=== PATIENT | female | born 1965 | race Caucasian/White ===

== ENCOUNTER 2018-07-13 06:44 | Day surgery (SDC) | payer OTHER, MEDICARE ==
[~2018-07-13] VITALS: Ht 152.4 cm; Wt 75.0 kg
[~2018-07-13 06:44] MED LIST: CLON.5 PO; ESCI20TA PO; ESTR-95 PO; MULT-199 PO; PROV2.5 PO; QUET200T PO; RINGERS SOLUTION,LACTATED 1,000 ML IV ONE
[2018-07-13] MEDS ORDERED: SUCCINYLCHOLINE CHLORIDE 20 MG/ML 10 ML VIAL IVP ONE (06:45)
[2018-07-13] MEDS ORDERED: AMPICILLIN SODIUM 1 GM/VIAL ONE (06:45)
[2018-07-13] MEDS ORDERED: ONDANSETRON HCL 4 MG/2 ML VIAL IVP ONE (06:45)
[2018-07-13] MEDS ORDERED: LIDOCAINE/PF 2% 5 ML VIAL IM ONE (06:45)
[2018-07-13] MEDS ORDERED: DEXAMETHASONE SOD PHOS 4 MG/ML VIAL IVP ONE (06:45)
[2018-07-13] MEDS ORDERED: FentaNYL CITRATE-PF 100 MCG/2 ML VIAL IVP ONE (06:45)
[2018-07-13] MEDS ORDERED: PROPOFOL 1% 20 ML VIAL IVP ONE (06:45)
[2018-07-13] MEDS ORDERED: MEPERIDINE-PF 25 MG/ML VIAL IVP PRN (10:15)
[2018-07-13] MEDS ORDERED: HYDROmorphone 2 MG/ML SYRINGE IVP PRN (10:15)
[2018-07-13] MEDS ORDERED: FentaNYL CITRATE-PF 100 MCG/2 ML VIAL IVP PRN (10:15)
[2018-07-13] MEDS ORDERED: BUPIVACAINE/EPI/PF 0.5% 30 ML VIAL ONE (10:19)
[2018-07-13] MEDS ORDERED: MEPERIDINE-PF 25 MG/ML VIAL ONE (10:39)
[2018-07-13] MEDS ORDERED: OXYGEN THERAPY IH SCH (20:00)
== END 2018-07-13 11:40 | disposition home or self-care (01) ==
LOC: SURGERY 06:44
PROVIDERS: ATTEND Dentist General Practice
DX: K05.30 Chronic periodontitis, unspecified (principal); K04.7 Periapical abscess without sinus; E11.9 Type 2 diabetes mellitus without complications; E78.5 Hyperlipidemia, unspecified; K21.9 Gastro-esophageal reflux disease without esophagitis; E55.9 Vitamin D deficiency, unspecified; F41.8 Other specified anxiety disorders; F71 Moderate intellectual disabilities; F32.9 Major depressive disorder, single episode, unspecified; Z86.69 Personal history of other diseases of the nervous system and sense organs; Z88.1 Allergy status to other antibiotic agents; Z88.2 Allergy status to sulfonamides; Z90.49 Acquired absence of other specified parts of digestive tract; Z79.84 Long term (current) use of oral hypoglycemic drugs; Z79.2 Long term (current) use of antibiotics; Z88.8 Allergy status to other drugs, medicaments and biological substances; Z79.899 Other long term (current) drug therapy; Z98.890 Other specified postprocedural states
CPT/HCPCS: 41899; J0290; J0330; J1100; J2175; J2405; J2704; J3010; J3490 ×2; J7120

== ENCOUNTER 2020-11-22 06:31 | Day surgery (SDC) | payer OTHER, MEDICARE, MEDICAID ==
[~2020-11-22] VITALS: Ht 147.3 cm; Wt 70.5 kg
[~2020-11-22 06:31] MED LIST changes: +CLON-592 PO; -CLON.5 PO; -ESCI20TA PO; +ESCI20TA87 PO
[2020-11-22] MEDS ORDERED: SODIUM CHLORIDE 0.9% 0 ML ONE (07:15)
[2020-11-22 07:31] LABS: BASOPHILS % (AUTO) 0.5 % (0.0-2.0); EOSINOPHILS % (AUTO) 4.1 % (1.0-6.0); HEMATOCRIT 41.9 % (36-46); HEMOGLOBIN 13.9 g/dL (12.0-16.0); LYMPHOCYTES # (AUTO) 1.9 K/uL (1.0-4.8); LYMPHOCYTES % (AUTO) 26.3 % (22.0-44.0); MEAN CORPUSCULAR HEMOGLOBIN 29.9 pg (26.0-34.0); MEAN CORPUSCULAR HGB CONC 33.2 G/dL (31.0-37.0); MEAN CORPUSCULAR VOLUME 90 fL (80-100); MONOCYTES # (AUTO) 0.4 K/uL (0.1-1.0); MONOCYTES % (AUTO) 5.4 % (2.0-9.0); NEUTROPHILS # (AUTO) 4.6 K/uL (1.8-7.7); NEUTROPHILS % (AUTO) 63.7 % (40.0-70.0); PLATELET COUNT (AUTO) 233 K/uL (150-450); RED BLOOD CELL COUNT(AUTO) 4.66 MIL/uL (4.00-5.20); RED CELL DISTRIBUTION WIDTH 13.9 % (11.5-14.5)
[2020-11-22] MEDS ORDERED: AMPICILLIN SODIUM 1 GM/VIAL ONE (07:38)
[2020-11-22 07:40] LABS: ANION GAP 9 mmol/L (8-16); CALCIUM, TOTAL 9.3 mg/dL (8.8-10.5); CARBON DIOXIDE 27 mmol/L (22-29); CHLORIDE 105 mmol/L (98-107); CREATININE 0.84 mg/dL (0.60-1.30); GLOMERULAR FILTR. RATE CALC > 60 mL/min (>60); GLUCOSE,RANDOM 94 mg/dL (70-110); POTASSIUM 4.3 mmol/L (3.5-5.1); SODIUM SERUM 141 mmol/L (136-145); UREA NITROGEN, BLOOD 19 mg/dL (7-18)
[2020-11-22 07:44] LABS: COVID AG,FIA SOURCE NASOPHARYNGEAL
[2020-11-22 07:45] LABS: PROTHROMBIN TIME 10.6 SEC (9.4-11.6)
[2020-11-22 07:48] LABS: ALANINE AMINOTRANSFERASE 25 U/L (12-78); ALBUMIN 3.8 g/dL (3.4-5.0); ALKALINE PHOSPHATASE 85 U/L (46-116); ASPARTATE AMINOTRANSFERASE 20 U/L (15-37); BILIRUBIN,TOTAL 0.5 mg/dL (0.1-1.0); TOTAL PROTEIN, SERUM 7.5 g/dL (6.4-8.2)
[2020-11-22] MEDS ORDERED: RINGERS SOLUTION,LACTATED 1,000 ML IV ONE (08:00)
[2020-11-22] MEDS ORDERED: HYDR50CA9 PO (08:53)
[2020-11-22] MEDS ORDERED: DEXAMETHASONE 4 MG TABLET ONE (09:54)
[2020-11-22] MEDS ORDERED: ONDANSETRON HCL 4 MG/2 ML VIAL ONE (09:54)
[2020-11-22] MEDS ORDERED: PROPOFOL 1% 20 ML VIAL IVP ONE (09:54)
[2020-11-22] MEDS ORDERED: SUCCINYLCHOLINE CHLORIDE 20 MG/ML 10 ML VIAL ONE (09:54)
[2020-11-22] MEDS ORDERED: LIDOCAINE 2% 5 ML JELLY ONE (09:54)
[2020-11-22] MEDS ORDERED: BUPIVACAINE 0.25%/EPI 1:200,000/PF 10 ML VIAL ONE (14:03)
== END 2020-11-22 15:10 | disposition home or self-care (01) ==
LOC: SURGERY 06:31
PROVIDERS: ATTEND Dentist General Practice
DX: K02.9 Dental caries, unspecified (principal); K05.30 Chronic periodontitis, unspecified; K03.6 Deposits [accretions] on teeth; G40.909 Epilepsy, unspecified, not intractable, without status epilepticus; K21.9 Gastro-esophageal reflux disease without esophagitis; F32.9 Major depressive disorder, single episode, unspecified; B06.9 Rubella without complication; Z88.1 Allergy status to other antibiotic agents; Z88.2 Allergy status to sulfonamides; Z88.8 Allergy status to other drugs, medicaments and biological substances; F63.81 Intermittent explosive disorder; Z79.899 Other long term (current) drug therapy; Z98.890 Other specified postprocedural states
CPT/HCPCS: 36415; 41899; 71045; 80053; 85025; 85610; 85730; 87426; 93005; C9803; J0290; J3490; J7120; J0330; J2405; J2704; J7050; J8540

== ENCOUNTER 2022-07-24 06:12 | Day surgery (SDC) | payer OTHER, MEDICARE, MEDICAID ==
[~2022-07-24] VITALS: Ht 150.5 cm; Wt 80.3 kg
[~2022-07-24 06:12] MED LIST changes: +HYDR50CA7 PO; -RINGERS SOLUTION,LACTATED 1,000 ML IV ONE
[2022-07-24] MEDS ORDERED: RINGERS SOLUTION,LACTATED 1,000 ML IV ONE ×2 (06:30→07:00)
[2022-07-24 06:45] LABS: COVID AG,FIA SOURCE NASAL SWAB
[2022-07-24 07:02] LABS: BASOPHILS % (AUTO) 0.2 % (0.0-2.0); EOSINOPHILS % (AUTO) 1.3 % (1.0-6.0); HEMATOCRIT 42.5 % (36-46); HEMOGLOBIN 14.1 g/dL (12.0-16.0); LYMPHOCYTES # (AUTO) 1.5 K/uL (1.0-4.8); LYMPHOCYTES % (AUTO) 21.1 % (22.0-44.0); MEAN CORPUSCULAR HEMOGLOBIN 29.8 pg (26.0-34.0); MEAN CORPUSCULAR HGB CONC 33.2 G/dL (31.0-37.0); MEAN CORPUSCULAR VOLUME 90 fL (80-100); MONOCYTES # (AUTO) 0.4 K/uL (0.1-1.0); MONOCYTES % (AUTO) 5.9 % (2.0-9.0); NEUTROPHILS % (AUTO) 71.5 % (40.0-70.0); PLATELET COUNT (AUTO) 241 K/uL (150-450); RED BLOOD CELL COUNT(AUTO) 4.73 MIL/uL (4.00-5.20); RED CELL DISTRIBUTION WIDTH 13.3 % (11.5-14.5)
[2022-07-24 07:14] LABS: PROTHROMBIN TIME 10.6 SEC (9.4-11.6)
[2022-07-24 07:16] LABS: ANION GAP 6 mmol/L (8-16); CALCIUM, TOTAL 9.5 mg/dL (8.8-10.5); CARBON DIOXIDE 28 mmol/L (22-29); CHLORIDE 104 mmol/L (98-107); CREATININE 0.78 mg/dL (0.60-1.30); GLUCOSE,RANDOM 100 mg/dL (70-110); POTASSIUM 4.2 mmol/L (3.5-5.1); SODIUM SERUM 138 mmol/L (136-145); UREA NITROGEN, BLOOD 21 mg/dL (7-18)
[2022-07-24 07:18] LABS: GLOMERULAR FILTR. RATE CALC > 60 mL/min (>60)
[2022-07-24 07:24] LABS: ALANINE AMINOTRANSFERASE 25 U/L (12-78); ALBUMIN 3.7 g/dL (3.4-5.0); ALKALINE PHOSPHATASE 91 U/L (46-116); ASPARTATE AMINOTRANSFERASE 18 U/L (15-37); BILIRUBIN,TOTAL 0.4 mg/dL (0.1-1.0); TOTAL PROTEIN, SERUM 7.4 g/dL (6.4-8.2)
[2022-07-24] MEDS ORDERED: CLINDAMYCIN 600 MG/D5% WATER 50 ML IV ONE (08:00)
[2022-07-24] MEDS ORDERED: OXYMETAZOLINE HCL 0.05% 15 ML NASAL SPRAY NASAL ONE (08:30)
[2022-07-24] MEDS ORDERED: ONDANSETRON HCL 4 MG/2 ML VIAL IVP ONE (12:00)
[2022-07-24] MEDS ORDERED: MIDAZOLAM HCL 2 MG/2 ML VIAL IVP ONE (12:00)
[2022-07-24] MEDS ORDERED: ROCURONIUM BROMIDE 10 MG/ML 5 ML VIAL IVP ONE (12:00)
[2022-07-24] MEDS ORDERED: LIDOCAINE/PF 2% 5 ML VIAL IM ONE (12:00)
[2022-07-24] MEDS ORDERED: PROPOFOL 1% 20 ML VIAL IVP ONE (12:00)
[2022-07-24] MEDS ORDERED: FentaNYL CITRATE PF 100 MCG/2 ML VIAL IVP ONE (12:00)
== END 2022-07-24 10:45 | disposition home or self-care (01) ==
LOC: SURGERY 06:12
PROVIDERS: ATTEND Dentist General Practice
DX: K02.9 Dental caries, unspecified (principal); K05.30 Chronic periodontitis, unspecified; G40.909 Epilepsy, unspecified, not intractable, without status epilepticus; K21.9 Gastro-esophageal reflux disease without esophagitis; K03.6 Deposits [accretions] on teeth; P35.0 Congenital rubella syndrome; Z79.01 Long term (current) use of anticoagulants; Z79.899 Other long term (current) drug therapy; Z20.822 Contact with and (suspected) exposure to COVID-19; Z98.890 Other specified postprocedural states
CPT/HCPCS: 41899; 71045; 87426; 80053; 85025; 85610; 36415; 93005; J2704; J3490 ×3; J3010; J2250; J2405; J7120; C9803

== ENCOUNTER 2023-12-31 06:02 | Day surgery (SDC) | payer OTHER, MEDICARE ==
[~2023-12-31] VITALS: Ht 147.3 cm; Wt 77.2 kg
[~2023-12-31 06:02] MED LIST changes: -MULT-199 PO; +MULT-262 PO
[2023-12-31] MEDS ORDERED: RINGERS SOLUTION,LACTATED 1,000 ML IV ONE ×2 (06:22→12:48)
[2023-12-31] MEDS ORDERED: AMPICILLIN SODIUM 2 GM/NS 100 ML IV ONE (07:50)
[2023-12-31 07:53] LABS: BASOPHILS % (AUTO) 0.4 % (0.0-2.0); EOSINOPHILS % (AUTO) 1.4 % (1.0-6.0); HEMATOCRIT 41.4 % (36-46); HEMOGLOBIN 14.1 g/dL (12.0-16.0); LYMPHOCYTES # (AUTO) 1.8 K/uL (1.0-4.8); LYMPHOCYTES % (AUTO) 25.9 % (22.0-44.0); MEAN CORPUSCULAR HEMOGLOBIN 30.3 pg (26.0-34.0); MEAN CORPUSCULAR HGB CONC 33.9 G/dL (31.0-37.0); MEAN CORPUSCULAR VOLUME 89 fL (80-100); MONOCYTES # (AUTO) 0.4 K/uL (0.1-1.0); MONOCYTES % (AUTO) 5.4 % (2.0-9.0); NEUTROPHILS # (AUTO) 4.7 K/uL (1.8-7.7); NEUTROPHILS % (AUTO) 66.9 % (40.0-70.0); PLATELET COUNT (AUTO) 244 K/uL (150-450); RED BLOOD CELL COUNT(AUTO) 4.64 MIL/uL (4.00-5.20); RED CELL DISTRIBUTION WIDTH 13.5 % (11.5-14.5); WHITE BLOOD COUNT (AUTO) 6.9 K/uL (4.5-11.0)
[2023-12-31 07:58] LABS: ANION GAP 9 mmol/L (8-16); CALCIUM, TOTAL 8.7 mg/dL (8.8-10.5); CARBON DIOXIDE 27 mmol/L (22-29); CHLORIDE 103 mmol/L (98-107); CREATININE 0.77 mg/dL (0.60-1.30); GLOMERULAR FILTR. RATE CALC > 60 mL/min (>60); GLUCOSE,RANDOM 93 mg/dL (70-110); POTASSIUM 3.9 mmol/L (3.5-5.1); SODIUM SERUM 139 mmol/L (136-145); UREA NITROGEN, BLOOD 18 mg/dL (7-18)
[2023-12-31 08:03] LABS: ALANINE AMINOTRANSFERASE 22 U/L (12-78); ALBUMIN 3.4 g/dL (3.4-5.0); ALKALINE PHOSPHATASE 90 U/L (46-116); ASPARTATE AMINOTRANSFERASE 19 U/L (15-37); BILIRUBIN,TOTAL 0.5 mg/dL (0.1-1.0); PROTHROMBIN TIME 10.6 SEC (9.4-11.6); TOTAL PROTEIN, SERUM 7.3 g/dL (6.4-8.2)
[2023-12-31] MEDS: RINGERS SOLUTION,LACTATED 1,000 ML IV ONE (09:56)
[2023-12-31] MEDS ORDERED: ONDANSETRON HCL 4 MG/2 ML VIAL ONE (12:00)
[2023-12-31] MEDS ORDERED: PROPOFOL 1% 20 ML VIAL IVP ONE (12:00)
[2023-12-31] MEDS ORDERED: ROCURONIUM BROMIDE 10 MG/ML 5 ML VIAL ONE (12:00)
[2023-12-31] MEDS ORDERED: LIDOCAINE/PF 2% 5 ML SYRINGE IVP ONE (12:00)
[2023-12-31] MEDS ORDERED: DEXAMETHASONE SOD PHOS 4 MG/ML VIAL ONE (12:00)
[2023-12-31] MEDS ORDERED: SUGAMMADEX SODIUM 200 MG/2 ML VIAL IVP ONE (12:00)
== END 2023-12-31 14:00 | disposition home or self-care (01) ==
LOC: SDS 06:02 → EDSTATUS 10:15 → SDS 14:00
PROVIDERS: ATTEND Dentist General Practice
DX: K05.30 Chronic periodontitis, unspecified (principal); B06.9 Rubella without complication; K21.9 Gastro-esophageal reflux disease without esophagitis; K03.6 Deposits [accretions] on teeth; Z79.01 Long term (current) use of anticoagulants; Z79.899 Other long term (current) drug therapy; G43.909 Migraine, unspecified, not intractable, without status migrainosus; Z98.890 Other specified postprocedural states; Z88.1 Allergy status to other antibiotic agents
CPT/HCPCS: 41899; 71045; 80053; 85025; 85610; 85730; 36415; 93005; J0290; J2704; J1100; J2405; J3490 ×2; Q9967; J7120

== ENCOUNTER 2025-06-15 06:00 | Day surgery (SDC) | payer OTHER, MEDICARE ==
[~2025-06-15] VITALS: Ht 148.6 cm; Wt 80.9 kg
[~2025-06-15 06:00] MED LIST changes: -HYDR50CA7 PO; -PROV2.5 PO
[2025-06-15] MEDS ORDERED: RINGERS SOLUTION,LACTATED 1,000 ML IV ONE (06:15)
[2025-06-15 07:01] LABS: PLATELET COUNT (AUTO) 245 K/uL (150-450); RED BLOOD CELL COUNT(AUTO) 4.91 MIL/uL (4.00-5.20); RED CELL DISTRIBUTION WIDTH 13.7 % (11.5-14.5); WHITE BLOOD COUNT (AUTO) 6.5 K/uL (4.5-11.0)
[2025-06-15 07:12] LABS: CALCIUM, TOTAL 8.7 mg/dL (8.8-10.5); CREATININE 0.74 mg/dL (0.60-1.30); GLOMERULAR FILTR. RATE CALC > 60 mL/min (>60); GLUCOSE,RANDOM 97 mg/dL (70-110); SODIUM SERUM 139 mmol/L (136-145); UREA NITROGEN, BLOOD 16 mg/dL (7-18)
[2025-06-15 07:16] LABS: ASPARTATE AMINOTRANSFERASE 21 U/L (15-37); TOTAL PROTEIN, SERUM 7.1 g/dL (6.4-8.2)
[2025-06-15] MEDS ORDERED: CLINDAMYCIN 600 MG/D5% WATER 50 ML IV ONE (08:15)
[2025-06-15] MEDS: RINGERS SOLUTION,LACTATED 1,000 ML IV ONE (09:07)
[2025-06-15] MEDS ORDERED: ROCURONIUM BROMIDE 10 MG/ML 5 ML VIAL ONE (12:40)
[2025-06-15] MEDS ORDERED: SUGAMMADEX SODIUM 200 MG/2 ML VIAL IVP ONE (12:40)
[2025-06-15] MEDS ORDERED: PROPOFOL 1% 20 ML VIAL IVP ONE (12:40)
[2025-06-15] MEDS ORDERED: ONDANSETRON HCL 4 MG/2 ML VIAL ONE (12:40)
[2025-06-15] MEDS ORDERED: DEXAMETHASONE SOD PHOS 4 MG/ML VIAL ONE (12:40)
[2025-06-15] MEDS ORDERED: LIDOCAINE/PF 2% 5 ML SYRINGE IVP ONE (12:40)
== END 2025-06-15 11:40 | disposition home or self-care (01) ==
LOC: SURGERY 06:00
PROVIDERS: ATTEND Dentist General Practice
DX: K05.20 Aggressive periodontitis, unspecified (principal); K02.9 Dental caries, unspecified; F32.A Depression, unspecified; Z90.49 Acquired absence of other specified parts of digestive tract; Z98.890 Other specified postprocedural states; Z88.1 Allergy status to other antibiotic agents; Z88.2 Allergy status to sulfonamides; Z88.8 Allergy status to other drugs, medicaments and biological substances
CPT/HCPCS: 41899; 71045; 80053; 85025; 85610; 85730; 36415; 93005; J3490; J7120; J1100; J2405; J2704